=== PATIENT | female | born 1990 | race Caucasian/White ===

== ENCOUNTER 2018-11-07 12:23 | Emergency (ER) | payer OTHER ==
--- NOTE | 2018-11-07 13:38 | EDPHY ---
H & P Time Seen by Provider: 11/07/18 12:26 HPI/ROS: CHIEF COMPLAINT: Right forearm laceration HISTORY OF PRESENT ILLNESS: 27-year-old female was cutting the root of a plant with a knife when it slipped and she cut her right forearm. Occurred just prior to presentation. Bleeding is well controlled. No other injuries. Otherwise well. REVIEW OF SYSTEMS: A comprehensive 10 system review of systems was reviewed and is otherwise negative aside from elements mentioned in the history of present illness and medical decision making. PAST MEDICAL HISTORY: Patient denies. Believes her tetanus is up-to-date. SOCIAL HISTORY: Here with a friend. Nonsmoker. GENERAL APPEARANCE: Pleasant, alert, no acute distress. FOCUSED EXAM OF right upper extremity: 2 and 0.5 cm laceration on the volar aspect of the right forearm, 6 cm proximal to the wrist. Normal flexure function is present in the hand with normal flexion at the PIP and D IP joint as well as MCP joint and wrist flexors. Normal extensor function and the hand. Normal oil exploration engineer strength. Brisk capillary refill. Fingers are cool to the touch however the patient has a normal radial and ulnar pulse. Neurovascular exam: Good capillary refill, normal motor exam, normal neurologic exam. Constitutional: Initial Vital Signs Temperature (C) 36.9 C 11/07/18 12:27 Heart Rate 82 11/07/18 12:27 Respiratory Rate 16 11/07/18 12:27 Blood Pressure 128/80 H 11/07/18 12:27 O2 Sat (%) 99 11/07/18 12:27 O2 Delivery Mode Room Air Allergies/Adverse Reactions: No Known Allergies Allergy (Unverified 11/07/18 12:31) Home Medications: Medication Instructions Recorded Cephalexin [Keflex (RX)] 500 mg PO QID 7 Days cap 11/07/18 Fluconazole [Diflucan (*)] 150 mg PO ONCE #1 tab 11/07/18 Medical Decision Making Procedures: Procedure: Laceration repair. The 2.5cm laceration on the volar aspect, right forearm was anesthetized using Marcaine with epinephrine The wound was cleaned and irrigated per nursing and tech documentation. Laceration was then draped and explored. No tendon injury was identified. Patient does have a injury to the fascia of 1 of the muscle bundles. The wound was repaired with 4 0 Ethilon 4 mattress sutures and 5-0 Prolene, #4 simple interrupted. The wound repair was simple. The procedure was performed by myself. Patient is aware the laceration will have a scar. ED Course/Re-evaluation: Patient was placed on Keflex for infection prevention. She was given a volar wrist cock-up splint and instructed to wear this until her sutures were removed. She has concerns regarding the healing of the muscle as she uses her forearm musculature during her work. She was advised to follow up with Hand surgery if she has concerns regarding strength or function of the forearm. Please see the discharge instructions Differential Diagnosis: Differential diagnosis for the patient's injury was considered including but not limited to laceration, tendon injury, muscle injury, superficial laceration , fracture. Departure - Departure Disposition: Home, Routine, Self-Care Clinical Impression: Laceration Condition: Good Instructions: Laceration (ED) Additional Instructions: Keep wound clean and dry. Clean suture line with a mixture of hydrogen peroxide and water. Apply a thin layer of antibiotic cream. Keep the dressing on the wound for the 1st 4-5 days. Wear your Velcro splint for the next 10 days to avoid putting stress on the muscles of her forearm. Watch for signs of infection. Take the Keflex as directed. No soaking wound in water. No swimming. Showers are ok. Use Tylenol or ibuprofen as needed for pain. Sutures removed in 10-12 days. Follow up with a hand surgeon as directed below if you have any concerns regarding forearm muscle strength or proper healing. Return to emergency department if any concerns regarding infection. Referrals: NONE *PRIMARY CARE P,. [Primary Care Provider] - As per Instructions Andry Rojas MD [Medical Doctor] - As per Instructions Prescriptions: Cephalexin [Keflex (RX)] 500 mg PO QID 7 Days cap Fluconazole [Diflucan (*)] 150 mg PO ONCE #1 tab
[2018-11-07] MEDS ORDERED: FLUCONAZOLE 150 MG TAB PO ONE (13:56)
[2018-11-07 14:01] VITALS: BP 128/68
== END 2018-11-07 14:02 | disposition home or self-care (01) ==
LOC: CED 12:23
PROC: 0HQDXZZ Repair Right Lower Arm Skin, External Approach (ICD-10-PCS; principal; 2018-11-07)
DX: S51.811A Laceration without foreign body of right forearm, initial encounter (principal); W26.0XXA Contact with knife, initial encounter; Y93.89 Activity, other specified
CPT/HCPCS: 99284-ER